=== PATIENT | male | born 1945 | race Caucasian/White ===

== ENCOUNTER 2016-04-16 18:50 | Emergency (ER) | payer MEDICARE, OTHER ==
[~2016-04-16] VITALS: Ht 188 cm; Wt 112.7 kg
[~2016-04-16 18:50] MED LIST: APIX5TAB PO; CITA10TA9 PO; DILT240C85 PO; HYDR1TAB69 PO; NORT25CA PO; OMEP20TA86 PO; PRAM0.5T3 PO; PRO20 PO; ZOC20 PO
[2016-04-16 18:51] VITALS: BP 139/67; PULSE 110; RESP 18; O2SAT 92
--- NOTE | 2016-04-16 18:53 | ED.REPORT ---
HPI-Dyspnea / Wheezing Date of Service Apr 16, 2016 ED Provider: Dr. Giovany Langley D.O. This is a very pleasant 70-year-old male who presents with fever, chills, body aches and cough. He has been sick for several days. As far as he knows he has not been exposed to anyone ill. He is on chronic anticoagulation for stroke prevention. He has not missed any doses of his anticoagulants. He has had no hemoptysis. He does not have any pleuritic chest pain. He does seem to cough a lot of body aches but no anginal type pain in his chest either. Nursing Notes Stated Complaint: CHEST PAIN Chief Complaint: Respiratory Distress Nursing Notes Reviewed: Yes Allergies: Coded Allergies: codeine (Verified Allergy, Intermediate, rash, 04/16/16) Scheduled Citalopram (Citalopram) 10 Mg Tablet 10 MG PO DAILY Diltiazem-Expunged Drug, Do Not Renew! (Diltiazem CD-Expunged Drug, Do Not Renew !) 240 Mg Cap.sr.24h 240 MG PO DAILY FLUoxetine-Expunged Drug, Do Not Renew! (FLUoxetine-Expunged Drug, Do Not Renew! ) 20 Mg Capsule 40 MG PO HS Nortriptyline (Nortriptyline) 25 Mg Capsule 50 MG PO HS Omeprazole-Expunged Drug, Do Not Renew! (Omeprazole-Expunged Drug, Do Not Renew! ) 20 Mg Tablet.dr 20 MG PO HS Simvastatin-Expunged Drug, Choose New Med! (Simvastatin-Expunged Drug, Choose New Med!) 20 Mg Tablet 20 MG PO DAILY Scheduled PRN Hydrocod/APAP-Expunged, Do Not Renew! (Hydrocod/APAP 5/500-Expunged, Do Not Renew!) 1 Each Tablet 1 EACH PO Q4-6H PRN PRN Miscellaneous Medications Apixaban (Eliquis) 5 Mg Tablet Unknown Dose PO Pramipexole Dihydrochloride (Mirapex) 0.5 Mg Tablet 0.5 MG PO General Time Seen by MD: 18:53 Chief Complaint Chest pain Hx Obtained From: Patient Arrived By: Ambulance Sudden in Onset?: No Onset Occurred: Yesterday Symptom Duration: Since onset Location: : Chest left: Chest right Quality: Painful Severity: Current: Moderate Severity: Maximum: Moderate Associated with: Reports: Cough, Fever Exacerbated by: Deep breath Pertinent Negative: Relieved by nothing Recent Healthcare: No recent doctor visit Similar Sx Previous: No Past Medical History Past Medical History Atrial fibrillation Chronic back pain Past Surgical History Colonoscopy Smoking History Former Smoker Social History Other Social History: Good social support Ambulatory Status Independent Review of Systems Basic Review of Systems Eyes: Vision NL GI: No abdominal pain, No anorexia : No dysuria Hematologic: No bleeding Endocrine: No cold intolerance, No heat intolerance Neurologic: NL mental status Psychiatric: Normal thought content Constitutional: Reports: Chills, Fever (38.2 in ED) Respiratory: Reports: Non-productive cough, Shortness of breath Cardiovascular: Denies: Chest pain, Dyspnea on exertion, Syncope Musculoskeletal: Reports: Myalgia (Generalized) Complete sys rev & neg: except as marked. GI: Denies: Vomiting Neurologic: Denies: Bladder dysfunction, Bowel dysfunction Physical Exam Physical Exam Notes: Initial Vital Signs Vital Signs (First) Date Time Temp Pulse Resp B/P Pulse Ox O2 Delivery O2 Flow Rate FiO2 04/16/16 18:51 38.2 110 18 139/67 92 Room Air 04/16/16 22:38 2 Initial VS: Reviewed Head / Eyes: Atraumatic, Normocephalic ENT: Conjunctiva normal, No scleral icterus Abdomen / GI: Soft, Non-tender Extremities: Vascular intact, Neuro intact, No swelling Skin: Warm, Dry, No cyanosis Neurologic: Alert, Oriented, Nonfocal Psychiatric: Mood/affect normal, Behavior normal, Normal thought content General/Constitutional: Awake, Alert, No acute distress Respiratory / Chest: Breath sounds = bilat, No respiratory distress Rales / Rhonchi: Positive: Rhonchi diffuse (Bilateral) Cardiovascular: Heart rate NL, Regular rhythm, Heart sounds NL Interpretation & Diagnostics Interpretation & Diagnostics: Positive Influenza A Lab Results Interpretation Result Diagram: 04/16/164 04/16/16 192 Test 04/16/16 19:24 04/16/16 23:45 04/16/16 23:50 White Blood Count 4.5th/mm3 (3.8-10.1) Red Blood Count 4.33mil/mm3 (4.40-5.80) Hemoglobin 13.5g/dL (13.8-17.2) Hematocrit 39.3% (41.0-50.0) Mean Corpuscular Volume 90.8fL (81-100) Mean Corpuscular Hemoglobin 31.2pg (27.0-35.0) Mean Corpuscular Hemoglobin Concent 34.4% (32.0-37.0) Red Cell Distribution Width 13.0% (12.3-15.4) Platelet Count 119bil/L (150-400) Neutrophils (%) (Auto) 75.7% (40-74) Lymphocytes (%) (Auto) 10.4% (14-46) Monocytes (%) (Auto) 10.6% (4-12) Eosinophils (%) (Auto) 2.4% (0-5) Basophils (%) (Auto) 0.7% (0-3) Sodium Level 136mEq/L (134-144) Potassium Level 3.5mEq/L (3.5-5.2) Chloride Level 99mEq/L (97-108) Carbon Dioxide Level 22mmol/L (18-29) Blood Urea Nitrogen 10mg/dL (8-27) Creatinine 0.86mg/dL (0.76-1.27) Estimat Glomerular Filtration Rate 93mL/min (>59) Glucose Level 110mg/dL (60-99) Lactic Acid Level 0.9mmol/L (0.4-2.0) Calcium Level 9.2mg/dL (8.5-10.1) Total Bilirubin 0.4mg/dL (0.0-1.2) Aspartate Amino Transf (AST/SGOT) 17U/L (0-50) Alanine Aminotransferase (ALT/SGPT) 16U/L (0-44) Alkaline Phosphatase 89U/L (25-160) Pro-B-Type Natriuretic Peptide 212.2pg/mL (0-376) Total Protein 7.3g/dL (6.4-8.4) Albumin 4.1g/dL (3.4-5.0) Urine Color Yellow (YELLOW) Urine Appearance Clear (CLEAR,HAZY) Urine pH 6.5 (5.0-8.0) Urine Specific [place] <1.005 (1.003-1.035) Urine Protein Negativemg/dL (NEG,TRACE) Urine Glucose (UA) Negativemg/dL (NEGATIVE) Urine Ketones Negativemg/dL (NEGATIVE) Urine Occult Blood Negative (NEGATIVE) Urine Nitrite Negative (NEGATIVE) Urine Bilirubin Negative (NEGATIVE) Urine Urobilinogen Normalmg/dL (NORMAL) Urine Leukocyte Esterase Negative (NEGATIVE) Urine RBC 0-2/hpf (0-2) Urine WBC 0-5/hpf (0-5) Urine Epithelial Cells Occasional/hpf (NONE-MOD) Urine Crystals None seen (NONE SEEN) Urine Bacteria None/hpf (NONE-FEW) Urine Hyaline Casts None/lpf (NONE) Urine Granular Casts None seen (NONE SEEN) Urine Waxy Casts None seen (NONE SEEN) Urine Red Blood Cell Casts None seen (NONE SEEN) Urine White Blood Cell Casts None seen (NONE SEEN) Urine Mucus None seen (None Seen) Urine Trichomonas None seen (NONE SEEN) Urine Yeast None (NONE SEEN) Urinalysis Comment None Urine Culture Reflexed Not indicated Troponin T 0.010ug/L (0.0-0.011) ECG Interpretation ECG Interpretation: Sinus tachycardia rate 109 Time: 19:35 Interpreted by: ED physician X-Ray Chest Interpretation Chest Xray Interpretation: IMPRESSION: No acute process. Dictated by: Mary Garcia M.D. on 04/16/2016 at 19:26 View: Portable, 1 view Interpretation / Wet Read by: Interpret - Radiologist Re-Eval/Medical Decision Med Decision/Clinical Course This very pleasant 7-year-old male who has acute influenza a bronchitis. She had coarse wheeze. He is febrile. He has bile chemically proven influenza A. He is treated with DuoNeb steroids and Tamiflu. Antipyretics were given and he felt much better. His heart rate came down about 105. He was not hypoxic or tachypneic. I felt that pulmonary emboli was very unlikely. He is on anticoagulation. He does not have any PE or DVT risk factors and he has not had any hemoptysis, pleuritic pain or true shortness of breath. Even more so than that he has biochemical improvement influenza A and he is on Maria Elena quizzed the anticoagulant. I felt that d-dimer could potentially exposing him to unnecessary radiation. I did run serial troponins and they were normal. His EKG is reassuring. Chest x-ray was normal. He looked and felt well after about 6 hours of observation. He will be on Tamiflu. He is provided an albuterol MDI . I recommend close follow-up with his doctor this week. I will contact him tomorrow as well. Source of Hx: Old records Re-Evaluation/Progress #1: Time of Eval: 20:28 Patient Status: Condition improved Re-Evaluation/Progress Note: Patient rechecked. Re-Evaluation/Progress #2: Time of Eval: 21:50 Patient Status: Condition improved Re-Evaluation/Progress Note: Patient rechecked. Re-Evaluation/Progress #3: Time of Eval: 00:38 Patient Status: Condition improved Re-Evaluation/Progress Note: Discussed with patient x-ray and lab results, diagnosis, and plan for discharge. Follow-up and return to the ER instructions given. Patient agrees with plan for care and all questions were addressed. Differential Diagnosis: Positive: COPD exacerbation, Negative: Acute coronary syndrome, Pulmonary embolism Counseled Regarding: Diagnosis, Lab results, Need for follow-up, When/why to return to ED Discharge & Departure Impression: Primary Impression: Influenza A Disposition: Home Discharge Condition All VS Reviewed: Yes Condition: Stable Patient Instructions: Asthma (ED), Influenza (ED) Additional Instructions: Thank you for entrusting us with your care. Your influenza swab was positive for influenza A. Please take Tamiflu as prescribed. This will be twice daily for 5 days. You have mild bronchospasm from the influenza infection. Albuterol 2 puffs every 2-3 hours. If you develop any shortness of breath, any chest pain or start coughing up any blood to come back to the emergency department. Stay on all of your medications including your blood thinners. You should be seen this week in follow-up. Call your primary care provider tomorrow for a follow-up appointment. Return to the ER with any new or worsening symptoms. Referrals: Sharad Sneed MD (PCP) Sandra Attestation Portions of this note were transcribed by Mercedes Syeks. I, Dr. Langley, personally performed the history, physical exam, and medical decision-making; I reviewed and confirmed the accuracy of the information in the transcribed note. Signed by: Sandra Salazar, 04/17/2016, 01:12 copies to: Sharad Sneed MD, Todd P DO Apr 16, 2016 18:53 MERCEDES SYKES Apr 16, 2016 20:33
--- NOTE | 2016-04-16 19:28 | DRSVH ---
PROCEDURE: X-RAY CHEST ONE VIEW, PORTABLE ([id number]) INDICATIONS: cp,shortness of breath with fever TECHNIQUE: One view of the chest was acquired. COMPARISON: None. FINDINGS: Surgical changes and devices: None. Lungs and pleura: No pleural effusions or pneumothorax. Lungs are clear. Mediastinum: Mediastinal contours appear normal. Heart size is normal. Bones and chest wall: No suspicious bony lesions. Overlying soft tissues appear unremarkable. IMPRESSION: No acute process. Dictated by: Mary Garcia M.D. on 04/16/2016 at 19:26 Approved by: Mary Garcia M.D. on 04/16/2016 at 19:26
[2016-04-16 19:36] LABS: BASOPHILS % (AUTO) 0.7 % (0-3); EOSINOPHILS % (AUTO) 2.4 % (0-5); MONOCYTES % (AUTO) 10.6 % (4-12); Mean Corpuscular Hemoglobin 31.2 pg (27.0-35.0); Mean Corpuscular Volume 90.8 fL (81-100); NEUTROPHILS % (AUTO) 75.7 % (40-74); Platelet Count 119 bil/L (150-400)
[2016-04-16 19:40] VITALS: BP 139/67; PULSE 107; RESP 18; O2SAT 96
[2016-04-16 20:01] LABS: TROPONIN T < 0.010 ug/L (0.0-0.011)
[2016-04-16] MEDS ORDERED: 0.9% Sodium Chloride 1,000 ML IV ONE ×2 (20:30→21:30)
[2016-04-16 21:11] VITALS: BP 168/77; PULSE 105; RESP 18; O2SAT 100
[2016-04-16 21:24] VITALS: BP 168/77; PULSE 105; RESP 23; O2SAT 99
[2016-04-16] MEDS ORDERED: Albuterol-Ipratropium 3 mL Inhalation Solution NEB ONE (21:55)
[2016-04-16] MEDS ORDERED: MethylprednisoLONE Sodium Succinate 62.5 mg/mL 2 mL Inj IVPUSH ONE (21:55)
[2016-04-16] MEDS ORDERED: _Albuterol-HFA 60 Puff Inhaler INHALATION PRN (22:35)
[2016-04-16 22:38] VITALS: PULSE 106; RESP 14; O2SAT 96
[2016-04-16 23:03] VITALS: BP 164/65; PULSE 115; RESP 21; O2SAT 95
[2016-04-17 00:32] LABS: APPEARANCE,URINE CLEAR (CLEAR,HAZY); COLOR,URINE YELLOW (YELLOW); OCCULT BLOOD,URINE NEGATIVE (NEGATIVE); PH,URINE 6.5 (5.0-8.0); UROBILINOGEN,URINE NORMAL (NORMAL)
[2016-04-17 00:48] VITALS: BP 135/66; PULSE 114; RESP 30; O2SAT 95
== END 2016-04-17 00:50 | disposition home or self-care (01) ==
LOC: SED 18:50
DX: J10.1 Influenza due to other identified influenza virus with other respiratory manifestations (principal); I48.91 Unspecified atrial fibrillation; R07.9 Chest pain, unspecified; Z87.891 Personal history of nicotine dependence; Z79.01 Long term (current) use of anticoagulants; Z88.5 Allergy status to narcotic agent
CPT/HCPCS: 36415; 71010; 80053; 81000; 83605; 83880; 84484; 85025; 87040; 87804; 93005; 94640; 96361; 96374; 99285; J2930; J7030; J7620